=== PATIENT | male | born 1965 | race Caucasian/White ===

== ENCOUNTER 2021-04-21 02:38 | Emergency (ER) | payer BC ==
[~2021-04-21] VITALS: Ht 182.9 cm; Wt 99.8 kg
--- NOTE | 2021-04-21 02:57 | NUR ---
CHEST TIGHTNESS RADIATING TO LT ARM X 30MINS TO ER BED 3
[2021-04-21 02:59] LABS: BASOPHILS # (AUTO) 0.1 /CMM (0.0-0.2); HEMATOCRIT 44 % (39-51); HEMOGLOBIN 15.1 g/dL (13.5-17.5); LYMPHOCYTES # (AUTO) 2.5 /CMM (0.8-4.8); LYMPHOCYTES % (AUTO) 34.4 % (20.0-44.0); MEAN CORPUSCULAR HGB CONC 34 g/dl (31.0-36.0); MEAN CORPUSCULAR VOLUME 100 fL (80-96); MONOCYTES # (AUTO) 0.5 /CMM (0.1-1.30); MONOCYTES % (AUTO) 7.3 % (2.0-12.0); NEUTROPHILS # (AUTO) 3.7 /CMM (1.8-8.9); NEUTROPHILS % (AUTO) 51.3 % (43.0-81.0); PLATELET COUNT (AUTO) 153 /CMM (150-450); RED BLOOD CELL COUNT(AUTO) 4.39 MIL/uL (4.5-6.0); WHITE BLOOD COUNT (AUTO) 7.2 K/uL (4.3-11.0)
[2021-04-21] MEDS ORDERED: MORPHINE SULFATE INJ 2 MG/ML DISP.SYRIN IV ONE (03:00)
[2021-04-21] MEDS ORDERED: ONDANSETRON HCL/PF 4 MG/2 ML VIAL IVP ONE (03:00)
[2021-04-21] MEDS ORDERED: MORPHINE SULFATE INJ 4 MG/ML DISP.SYRIN ONE (03:01)
[2021-04-21] MEDS ORDERED: ONDANSETRON HCL/PF 4 MG/2 ML VIAL ONE (03:01)
[2021-04-21 03:08] LABS: CALCIUM, SERUM 8.5 mg/dL (8.5-10.1); CARBON DIOXIDE 25 mmol/L (21-32); CHLORIDE 103 mmol/L (98-107); GLUCOSE 100 mg/dL (74-106); POTASSIUM 3.7 mmol/L (3.5-5.1); SODIUM SERUM 138 mmol/L (136-145); UREA NITROGEN, BLOOD 10 mg/dL (7-18)
--- NOTE | 2021-04-21 04:10 | NUR ---
IV removed. Catheter intact and site benign. Pressure and 4x4 applied to site. No bleeding noted.Patient discharged to home in stable condition. Written and verbal after care instructions given. Patient verbalizes understanding of instruction.
[2021-04-21 04:55] VITALS: BP 158/105
--- NOTE | 2021-04-23 19:52 | NUR ---
4MG MORPHINE ORDERED, PT REFUSED, OMG RECORDED WASTE, 4MG ACTUALLY WASTED, LORRIE PURCELL WITNESSED
== END 2021-04-21 04:15 | disposition home or self-care (01) ==
LOC: ER 02:40
DX: R07.89 Other chest pain (principal); E78.5 Hyperlipidemia, unspecified
CPT/HCPCS: 36415; 71045-TC; 80048-TC; 84484-TC; 85025-TC; J2270; J2405

== ENCOUNTER 2022-04-28 19:57 | Emergency (ER) | payer BC, OTHER ==
[~2022-04-28] VITALS: Ht 182.9 cm; Wt 99.8 kg
--- NOTE | 2022-04-28 20:12 | NUR ---
BIBS C/O MID CHEST DISCOMFORT "FEELS SIMILAR TO WHEN I HAVE PANIC ATTACKS AND GERD" ASPIRIN/TUMS FORMULA WEIGHER WITH RELIEF. PATIENT ALERT AND ORIENTED X3. AMBULATORY WITH NON LABORED BREATHING IN CHAIR 02 AWAITING MD LEE.
--- NOTE | 2022-04-28 20:37 | NUR ---
Patient does not wish to proceed with medical care recommended by Dr. WALLS. Patient given information related to possible complications, up to and including , which could occur as a result of leaving the hospital at this time. Patient verbalizes understanding of risks involved due to leaving against medical advice. Patient has signed AMA form.
[2022-04-28 20:38] VITALS: BP 144/90
== END 2022-04-28 20:51 | disposition left against medical advice (07) ==
LOC: ER 20:02
DX: R07.89 Other chest pain (principal); E78.5 Hyperlipidemia, unspecified; F17.210 Nicotine dependence, cigarettes, uncomplicated; Z60.2 Problems related to living alone
CPT/HCPCS: 71045-TC